=== PATIENT | male | born 1965 | race Two or more races ===

== ENCOUNTER 2017-08-05 11:05 | Emergency (ER) | payer SELFPAY ==
[~2017-08-05] VITALS: Ht 177.8 cm; Wt 86.2 kg
[2017-08-05 11:43] VITALS: BP 152/87
== END 2017-08-05 12:12 | disposition home or self-care (01) ==
LOC: ER 11:05
DX: T15.92XA Foreign body on external eye, part unspecified, left eye, initial encounter (principal); X58.XXXA Exposure to other specified factors, initial encounter; Y93.89 Activity, other specified; Y92.89 Other specified places as the place of occurrence of the external cause; Y99.8 Other external cause status
CPT/HCPCS: 65220

== ENCOUNTER 2017-08-07 11:36 | Emergency (ER) | payer SELFPAY ==
[~2017-08-07] VITALS: Ht 177.8 cm; Wt 84.1 kg
[2017-08-07 11:51] VITALS: BP 137/93
== END 2017-08-07 12:40 | disposition home or self-care (01) ==
LOC: ER 11:36
DX: T15.92XA Foreign body on external eye, part unspecified, left eye, initial encounter (principal)